=== PATIENT | female | born 1970 | race Caucasian/White ===

== ENCOUNTER 2021-07-13 09:43 | Outpatient (CLI) | payer BC, SELFPAY ==
[2021-07-13 11:01] LABS: Kit Draw Collected
== END 2021-07-13 09:44 | disposition home or self-care (01) ==
PROVIDERS: PCP Internal Medicine
DX: E03.9 Hypothyroidism, unspecified (principal); M04.9 Autoinflammatory syndrome, unspecified; B96.81 Helicobacter pylori [H. pylori] as the cause of diseases classified elsewhere; R10.13 Epigastric pain
CPT/HCPCS: 99199; 36415